=== PATIENT | female | born 1970 | race Caucasian/White ===

== ENCOUNTER 2019-07-18 15:32 | Emergency (ER) | payer OTHER ==
[~2019-07-18] VITALS: Ht 160 cm; Wt 55.8 kg
[~2019-07-18 15:32] MED LIST: PRILOSEC10 MG; ZANTAC150 M1
[2019-07-18] MEDS ORDERED: LEVOTHYROXINE25 MCG (15:44)
[2019-07-18] MEDS ORDERED: SYNTHROID50 MCG (15:45)
[2019-07-18] MEDS ORDERED: FUSION PLUS CA1 EACH (15:45)
[2019-07-18] MEDS ORDERED: VITAMIN D310000 UNIT (15:46)
== END 2019-07-18 22:17 | disposition home or self-care (01) ==
LOC: ER 15:32
DX: N20.0 Calculus of kidney (principal); R10.31 Right lower quadrant pain; R10.32 Left lower quadrant pain